=== PATIENT | female | born 1985 | race African-American/Black ===

== ENCOUNTER 2018-10-01 14:25 | Emergency (ER) | payer BC, OTHER ==
[2018-10-01 14:30] VITALS: BP 98/70; PULSE 78; TEMP 98; BMI 18.6
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
== END 2018-10-01 15:28 | disposition home or self-care (01) ==
LOC: JERFT 14:25
DX: S30.814A Abrasion of vagina and vulva, initial encounter (principal); W01.198A Fall on same level from slipping, tripping and stumbling with subsequent striking against other object, initial encounter; Y93.E9 Activity, other interior property and clothing maintenance; Y92.018 Other place in single-family (private) house as the place of occurrence of the external cause; Y99.8 Other external cause status
CPT/HCPCS: 99281-25